=== PATIENT | female | born 1975 | race Caucasian/White ===

== ENCOUNTER 2016-12-01 13:46 | Emergency (ER) | payer OTHER ==
[~2016-12-01] VITALS: Ht 149.9 cm; Wt 73.0 kg
[2016-12-01] MEDS ORDERED: HYDR-3716 PO (14:03)
[2016-12-01] MEDS ORDERED: CYCL10TA PO (14:03)
[2016-12-01] MEDS ORDERED: diazepam (14:03)
[2016-12-01] MEDS ORDERED: VALI5TAB PO (14:35)
[2016-12-01] MEDS ORDERED: NORCOTAB PO (14:35)
[2016-12-01 14:46] VITALS: BP 138/72
== END 2016-12-01 15:00 | disposition home or self-care (01) ==
LOC: M ED 14:16
DX: M54.41 Lumbago with sciatica, right side (principal); G89.29 Other chronic pain; F41.9 Anxiety disorder, unspecified; Z79.899 Other long term (current) drug therapy; Z88.5 Allergy status to narcotic agent; Z88.0 Allergy status to penicillin; Z88.6 Allergy status to analgesic agent
CPT/HCPCS: 96372; 99282; J3360

== ENCOUNTER 2016-12-15 03:46 | Emergency (ER) | payer OTHER ==
[~2016-12-15] VITALS: Ht 149.9 cm; Wt 73.0 kg
[~2016-12-15 03:46] MED LIST: CYCL10TA PO; HYDR-3716 PO; NORCOTAB PO; VALI5TAB PO; diazepam
[2016-12-15] MEDS ORDERED: NORCO, ANEXSIA 5/325MG TABLET (HYDROcodone/ACETAMINOPHEN) PO ONE (04:00)
[2016-12-15 04:01] VITALS: BP 141/92
[2016-12-15] MEDS ORDERED: AMPICILLIN SOD/SULBACTAM SOD 3 GM in D5W MINI-BAG PLUS 100 ML IV ONE (05:00)
[2016-12-15] MEDS ORDERED: AUGM500T34 PO (05:18)
== END 2016-12-15 05:54 | disposition home or self-care (01) ==
LOC: M ED 04:41
DX: S41.151A Open bite of right upper arm, initial encounter (principal); W54.0XXA Bitten by dog, initial encounter; Y92.099 Unspecified place in other non-institutional residence as the place of occurrence of the external cause; Y93.89 Activity, other specified; Y99.9 Unspecified external cause status; F41.9 Anxiety disorder, unspecified; G89.29 Other chronic pain; F17.200 Nicotine dependence, unspecified, uncomplicated; Z88.6 Allergy status to analgesic agent; Z88.0 Allergy status to penicillin; Z88.5 Allergy status to narcotic agent